=== PATIENT | male | born 1995 | race Caucasian/White ===

== ENCOUNTER 2018-01-03 08:13 | Emergency (ER) | payer OTHER ==
[2018-01-03] MEDS: LIDOCAINE 2% W/EPIN INJ 20ML **PRES FREE INJ (09:00)
== END 2018-01-03 10:19 | disposition home or self-care (01) ==
LOC: M ED 08:13
DX: S01.511A Laceration without foreign body of lip, initial encounter (principal); S02.401A Maxillary fracture, unspecified side, initial encounter for closed fracture; X58.XXXA Exposure to other specified factors, initial encounter; Y92.9 Unspecified place or not applicable; Y93.9 Activity, unspecified; Y99.9 Unspecified external cause status
CPT/HCPCS: 70450

== ENCOUNTER 2018-01-03 15:29 | Emergency (ER) | payer OTHER ==
[2018-01-03] MEDS: DERMABOND TOPICAL SKIN ADHESIVE TOP (15:45)
== END 2018-01-03 16:16 | disposition home or self-care (01) ==
LOC: M ED 15:29
DX: Z48.02 Encounter for removal of sutures (principal)
CPT/HCPCS: 99282